=== PATIENT | female | born 1970 | race Caucasian/White ===

== ENCOUNTER 2023-09-02 19:33 | Inpatient (IN) | payer BC ==
[~2023-09-02] VITALS: Ht 165.1 cm; Wt 90.4 kg
[2023-09-02] MEDS ORDERED: MAXZIDE-25MG1 COMBO PO (19:44)
[2023-09-02] MEDS ORDERED: VERAPAMIL HCL80 MG PO (19:44)
[2023-09-02] MEDS ORDERED: FUROSEMIDE20 MG PO (19:44)
[2023-09-02 20:30] LABS: BASO% 0.3 % (0-3); EOS% 2.7 % (0-8); HEMATOCRIT 45.5 % (37.0-47.0); HEMOGLOBIN 15.3 g/dl (12.0-16.0); IMMATURE GRANULOCYTES 0.2 % (0.0-5.0); LYMPH% 25.9 % (15-41); MEAN CELL VOLUME 89.2 fL CALC (80.0-100.0); MEAN CORPUSCULAR HGB CONC 33.6 g/dL CAL (32.0-36.0); MONO% 7.2 % (2-13); NEUT# 7.85 thou/uL (2.00-7.15); NEUT% 63.7 % (42-76); RED BLOOD COUNT 5.1 mill/uL (4.20-5.60); RED CELL DISTRI WIDTH 13.1 % (11.5-15.5); URINE BILIRUBIN - DIPSTICK Negative (NEGATIVE); URINE BLOOD DIPSTICK Negative (NEGATIVE); URINE COLOR Yellow; URINE GLUCOSE - DIPSTICK Negative (NEGATIVE); URINE KETONE Negative (NEGATIVE); URINE LEUK ESTERASE Negative (NEGATIVE); URINE NITRITE - DIPSTICK Negative (Negative); URINE PH 8.5 (4.5-8.0); URINE PROTEIN - DIPSTICK Negative (NEG-TRACE); URINE UROBILINOGEN - DIPSTICK 0.2 E.U./dL (0.2)
[2023-09-02 20:35] LABS: ALBUMIN 4.8 g/dL (3.2-5.0); ALKALINE PHOSPHATASE 120 u/l (38-126); AMYLASE 85 u/l (30-110); ANION GAP 13 (6-22 (CALC)); BILIRUBIN, TOTAL 0.6 mg/dL (0.02-1.3); BUN 18 mg/dL (7-17); BUN/CREATININE RATIO 24 (12-20 (CALC)); CARBON DIOXIDE 24 mmol/l (22-30); CHLORIDE 105 mmol/l (95-108); CREATININE 0.8 mg/dL (0.5-1.0); GFR FOR AFR.AMER. > 60 ML/MIN (>=60 (CALC)); GFR OTHER RACES > 60 ML/MIN (>=60 (CALC)); LIPASE 118 u/l (23-300); POTASSIUM 3.6 mmol/l (3.5-5.1); SGOT/AST 38 u/l (14-36); SODIUM 139 mmol/l (137-146); TOTAL PROTEIN 8.2 g/dL (6.3-8.2)
[2023-09-03 04:49] VITALS: BP 128/83
[2023-09-03 08:12] VITALS: BP 145/95
[2023-09-03 10:41] VITALS: BP 111/80
[2023-09-03 13:07] VITALS: BP 138/80
[2023-09-03 15:35] VITALS: BP 118/68
[2023-09-03 18:59] VITALS: BP 117/72
[2023-09-04 04:03] VITALS: BP 99/54
[2023-09-04 07:23] VITALS: BP 98/57
[2023-09-04 08:26] VITALS: BP 102/62
== END 2023-09-04 13:00 | disposition home or self-care (01) | DRG 390 ==
LOC: ED 19:33 → ED-I 23:02 → ED 23:12 → MS2 23:13
PROVIDERS: Family Medicine; ADMIT Surgery; ATTEND Surgery
DX: K56.51 Intestinal adhesions [bands], with partial obstruction (principal); I10 Essential (primary) hypertension; Z96.643 Presence of artificial hip joint, bilateral; Z90.710 Acquired absence of both cervix and uterus
CPT/HCPCS: S0164